=== PATIENT | female | born 1960 | race African-American/Black ===

== ENCOUNTER 2018-07-03 17:24 | Emergency (ER) | payer OTHER ==
--- NOTE | 2018-07-03 18:37 | EDPHY ---
H & P Stated Complaint: mechanical fall ealier today, hit head; nausea and R ear pain Time Seen by Provider: 07/03/18 18:09 - Personal History Current Tetanus/Diphtheria Vaccine: Yes Current Tetanus Diphtheria and Acellular Pertussis (TDAP): Yes Tetanus Vaccine Date: 2017 - Medical/Surgical History Hx Asthma: Yes Hx Chronic Respiratory Disease: No Hx Diabetes: No Hx Cardiac Disease: No Hx Renal Disease: No Hx Cirrhosis: No Hx Alcoholism: No Hx HIV/AIDS: No Hx Splenectomy or Spleen Trauma: No Other PMH: HTN, hypothyroid, anxiety - Social History Smoking Status: Former smoker Constitutional: Initial Vital Signs Temperature (C) 36.8 C 07/03/18 17:33 Heart Rate 51 L 07/03/18 17:33 Respiratory Rate 16 07/03/18 17:33 Blood Pressure 153/90 H 07/03/18 17:33 O2 Sat (%) 100 07/03/18 17:33 O2 Delivery Mode Room Air Allergies/Adverse Reactions: doxycycline Allergy (Mild, Verified 11/18/13 16:37) hands and eyes turn yellow Home Medications: Medication Instructions Recorded COZAAR 05/23/09 Metoprolol Tartrate 05/23/09 Synthroid 05/23/09 Escitalopram Oxalate [Lexapro 10 10 mg PO 11/18/13 MG] Hydrochlorothiazide 07/03/18 Medical Decision Making - Diagnostics Imaging Results: Imaging Impressions Head CT 07/03/18 18:39 Impression: There is no acute intracranial abnormality identified on this unenhanced CT evaluation. If there is further clinical concern regarding the patient's symptoms, MR imaging is suggested, if not otherwise contraindicated. Findings were discussed with Zoltan Smith MD at 19:02, on 07/03/2018. Imaging: Discussed imaging studies w/ call center agent Radiologist, I viewed and interpreted images myself ED Course/Re-evaluation: CHIEF COMPLAINT: Head injury HISTORY OF PRESENT ILLNESS: The patient is a 58 y/o female with a history of anxiety complaining of falling and hitting her head today. While walking on her lunch break at 11:45am today, she slipped and hit the back of her head. She denies losing consciousness but did lie on the ground for a couple of minutes. She was able to walk after the fall but felt mildly nauseous. Starting at 16:00, 3 hours ago, the intermittent nausea worsened so she decided to present to the emergency department. No fever , chest pain, shortness of breath, abdominal pain, urinary or bowel complaints, numbness, paresthesias. REVIEW OF SYSTEMS: A 10 point review of systems was performed and is negative with the exception of the elements mentioned in the history of present illness. PHYSICAL EXAM: HR, BP, O2 Sat, RR. Temp noted General Appearance: Alert, well hydrated, appropriate, and non-toxic appearing. Head: Atraumatic without scalp tenderness or obvious injury Eyes: Pupils equal, round, reactive to light and accommodation, EOMI, no trauma , no injection. Ears: Clear bilaterally, no perforation, normal landmarks Nose: Atraumatic, no rhinorrhea, clear. Throat: There is no erythema or exudates, no lesions, normal tonsils, mucus membranes moist. Neck: Supple, 2+ carotid upstroke, nontender, no lymphadenopathy. Respiratory: No retractions, no distress, no wheezes, and no accessory muscle use. Lungs are clear to auscultation bilaterally. Cardiovascular: Regular rate and rhythm, no murmurs, rubs, or gallops. Bilateral carotid, radial, dorsalis pedis, and posterior tibial pulses intact. Good capillary refill all extremities. Gastrointestinal: Abdomen is soft, nontender, non-distended, no masses, no rebound, no guarding, no peritoneal signs. Musculoskeletal: Normal active ROM of all extremities, atraumatic. Neurological: Alert, appropriate, and interactive. The patient has normal DTRs and non-focal cranial nerves, motor, sensory, and cerebellar exam. Skin: No rashes, good turgor, no nodules on palpation. Past medical history: Hypertension, hypothyroid, anxiety Past surgical history: Denies Family history: Denies Social history: Family at bedside, employed, lives in [place] DIAGNOSTICS/PROCEDURES/CRITICAL CARE TIME: Head CT: Negative DIFFERENTIAL DIAGNOSIS: The differential diagnosis for the patient's head injury included but was not limited to concussion, skull fracture, intra-parenchymal contusion, subarachnoid , subdural and epidural hematoma. MEDICAL DECISION MAKING: The patient is a 58 y/o female with a history of anxiety presenting with slipping, falling and hitting her head today on her lunch break. She has a normal physical exam including a normal neuro exam. She is very concerned about her symptoms and is requesting a head CT. 1902: I spoke with Dr. Mitchell, radiologist, who reports that the head CT is negative. 1903: Reassessed patient and discussed laboratory and imaging findings. I have advised her to follow up with Dr. Jimenez and gave her post-concussive precautions. Return precautions provided; patient is comfortable with this plan. Departure - Departure Disposition: Home, Routine, Self-Care Clinical Impression: Head injury Qualifiers: Encounter type: initial encounter Qualified Code(s): S09.90XA - Unspecified injury of head, initial encounter Condition: Good Instructions: Concussion (ED), Head Injury (ED) Additional Instructions: 1. Apply ice to sore areas and take 600mg ibuprofen every 6-8 hours or 650mg Tylenol every 4-6 hours for pain for the next few days. 2. Cognitive rest while symptoms are present. Avoid screen time including TV, phones, and computers until symptoms improve. 3. Physical rest while symptoms are present. Avoid any activities that could put you at further risk for a head injury until your symptoms resolve including contact sports, bicycling, etc. This may be 2 weeks or longer. 4. Follow up with Dr. Jimenez, head injury specialist, for unimproved symptoms over the next 10-14 days. It's not uncommon to experience fatigue, mood swings, and difficulty concentrating with concussions. 5. Return to the ED for severe headache, weakness or numbness on one side of your body, vision changes, or other worsening of condition. Referrals: BENSON JAMESON [Primary Care Provider] - As per Instructions Tessa Jimenez MD [Medical Doctor] - As per Instructions Report Scribed for: Zoltan Smith Report Scribed by: Starla Rueda Date of Report: 07/03/18 Time of Report: 18:35
[2018-07-03 19:19] VITALS: BP 149/90
== END 2018-07-03 19:18 | disposition home or self-care (01) ==
DX: S09.90XA Unspecified injury of head, initial encounter (principal); W01.10XA Fall on same level from slipping, tripping and stumbling with subsequent striking against unspecified object, initial encounter; Y92.9 Unspecified place or not applicable; Y93.9 Activity, unspecified; Y99.9 Unspecified external cause status